=== PATIENT | male | born 1980 | race Two or more races ===

== ENCOUNTER 2021-01-15 08:55 | Emergency (ER) | payer OTHER ==
[~2021-01-15] VITALS: Ht 177.8 cm; Wt 118.8 kg
[2021-01-15 09:20] VITALS: BP 165/105
== END 2021-01-15 11:03 | disposition home or self-care (01) ==
LOC: EDBD 08:55 → ER 08:55
DX: S16.1XXA Strain of muscle, fascia and tendon at neck level, initial encounter (principal); S39.012A Strain of muscle, fascia and tendon of lower back, initial encounter; E11.9 Type 2 diabetes mellitus without complications; V43.52XA Car driver injured in collision with other type car in traffic accident, initial encounter; Y93.89 Activity, other specified; Y92.488 Other paved roadways as the place of occurrence of the external cause; Y99.8 Other external cause status
CPT/HCPCS: 72100; 72125